=== PATIENT | female | born 1995 | race Caucasian/White ===

== ENCOUNTER 2017-05-07 13:36 | Emergency (ER) | payer OTHER ==
--- NOTE | 2017-05-07 15:50 | EDPHY ---
H & P Stated Complaint: edema in feet/dc'd from benzo/suboxone detox facility to come here Time Seen by Provider: 05/07/17 15:49 HPI/ROS: HPI: This is a 21-year-old female who presents with Chief Complaint: edema in feet/dc'd from benzo/suboxone detox facility to come here Location: Bilateral feet and left heel Quality: Swelling and pain Duration: 1 day Signs and Symptoms: + shortness of breath at rest and on exertion, no chest pain, no nausea, no vomiting, no dizziness, no tremors, no palpitations Timing: Rapid onset Severity: Moderate to severe Context: Patient is currently in a detox program for the last 3-4 days. She is currently on a regimen to wean herself off the Suboxone that include morphine , benzodiazepine. She reports this morning she noticed bilateral feet swelling , pitting in nature. Denies calf pain. She does have some shortness of breath at rest and on exertion. Denies chest pain, cough, fevers. Denies any recent long distance travel. Positive tobacco user. Modifying Factors: None Comment: ROS: see HPI Constitutional: No fever, no chills, no weight loss Eyes: No blurred vision Respiratory: No shortness of breath, no cough Cardiovascular: No chest pain Gastrointestinal: No nausea, no vomiting, no diarrhea Genitourinary: No dysuria Extremities: No myalgias Neurologic: No weakness, no numbness Skin: No rashes Hematologic: No bruising, no bleeding MEDICAL/SURGICAL/SOCIAL HISTORY: Medical history: ruptured l fallopian tube. Does not take any regular medications. Surgical history: Denies Social history: Unemployed. CONSTITUTIONAL: Extremely anxious dramatic young adult white female, awake and alert, no obvious distress HEENT: Atraumatic and normocephalic, PERRL, EOMI. Tympanic membranes clear. Oropharynx clear, no exudate and moist pink mucosa. Airway patent. No lymphadenopathy. No meningismus. Cardiovascular: Normal S1/S2, regular rate, regular rhythm, without murmur rub or gallop. PULMONARY/CHEST: Symmetrical and nontender. Clear to auscultation bilaterally. Good air movement. No accessory muscle usage. ABDOMEN: Soft, nondistended, nontender, no rebound, no guarding, no peritoneal signs, no masses or organomegaly. No CVAT. EXTREMITIES: 2/2 DP and PT pulses, strength 5/5, pitting edema 1+ noted in both feet. Left heel has mild erythema; no induration. No fluctuance. Left Ankle; Plantar flexion to 50, dorsiflexion to 20. Foot inversion to 35 degree. Achilles tendon intact. no deformities, no clubbing, no cyanosis or edema. NEUROLOGICAL: no focal neuro deficits. GCS 15. SKIN: Warm and dry, no erythema. no rash. Good capillary refill. Source: Patient Exam Limitations: No limitations - Personal History LMP (Females 10-55): Over 28 Days Ago Current Tetanus/Diphtheria Vaccine: Yes - Medical/Surgical History Hx Asthma: No Hx Chronic Respiratory Disease: No Hx Diabetes: No Hx Cardiac Disease: No Hx Renal Disease: No Hx Cirrhosis: No Hx Alcoholism: No Hx HIV/AIDS: No Hx Splenectomy or Spleen Trauma: No Other PMH: ruptured l fallopian tube - Social History Smoking Status: Current every day smoker Constitutional: Initial Vital Signs Temperature (C) 36.9 C 05/07/17 14:06 Heart Rate 94 05/07/17 14:06 Respiratory Rate 17 05/07/17 14:06 Blood Pressure 108/59 L 05/07/17 14:06 O2 Sat (%) 95 05/07/17 14:06 O2 Delivery Mode Room Air Allergies/Adverse Reactions: No Known Allergies Allergy (Unverified 05/07/17 14:06) Home Medications: Medication Instructions Recorded Ativan 05/07/17 Cephalexin [Keflex (*)] 500 mg PO TID #21 cap 05/07/17 Codeine Sulf 05/07/17 Medical Decision Making - Diagnostics Imaging Results: Imaging Impressions Extremity Venous Study 05/07/17 16:10 Impression: There is no sonographic evidence of deep or superficial venous thrombosis in either lower extremity. Findings were discussed with Eleanor Joseph PA-C at 17:07, on 05/07/2017. Foot X-Ray 05/07/17 16:11 Impression: Diffuse soft tissue swelling, with no acute osseous abnormality. Foot X-Ray 05/07/17 17:22 Impression: Soft tissue swelling. ED Course/Re-evaluation: Labs, bilateral lower extremity ultrasound, left foot x-ray, IV medications ordered No signs of neurovascular compromise/tenting of skin/compartment syndrome/ extremities and joints examined above and below area of concern and are neurovascularly intact/peripheral vascular disease/ischemia. 1645: Advised by nursing that patient reports that 30 min after IV fentanyl 50 mcg of there is absolutely no pain relief. IV Dilaudid 1 mg given. 1710: Called by Dr. Centeno, radiologist, who advised that bilateral lower extremity ultrasound is negative for deep venous thrombosis. [place] can cause edema. [place] level 0 point Mildly elevated LFTs, low albumin noted. Will start her on Keflex as preventative measures as she had a pedicure over a week ago and there could be early infection in her heel on the left. No overt signs of cellulitis/abscess/soft tissue swelling seen on x-ray. Discussed the mildly elevated proBNP with Dr. Deras. Patient has no signs of hypoxia, respiratory distress, chest pain, pericarditis. Patient is to follow up with her primary care provider in the next 2-3 days. Pain was improved at discharge and deemed adequate for patient. Counselor at bedside and requested Ativan be given as she has not had any since this a.m. She is currently being tapered from 24 mg a day. She is due for 4 mg Ativan p.o. at this time and that dosage was given. X-rays on the feet my read show no fracture, dislocation. This patient was seen under the supervision of my secondary supervising physician. I evaluated care for this patient independently. Patient's presentation, labs/imaging, treatment and plan of care were discussed with secondary supervising physician. Differential Diagnosis: Leg swelling including but not limited to hypoalbuminemia, congestive heart failure, cor pulmonale, chronic venous stasis and DVT. - Data Points Laboratory Results: Laboratory Results 05/07/17 16:05 05/07/17 16:05 05/07/17 05/07/17 05/07/17 16:05 16:05 16:05 WBC 7.78 10^3/uL 10^3/uL (3.80-9.50) RBC 3.83 10^6/uL L 10^6/uL (4.18-5.33) Hgb 11.6 g/dL L g/dL (12.6-16.3) Hct 34.9 % L % (38.0-47.0) MCV 91.1 fL fL (81.5-99.8) MCH 30.3 pg pg (27.9-34.1) MCHC 33.2 g/dL g/dL (32.4-36.7) RDW 12.3 % % (11.5-15.2) Plt Count 209 10^3/uL 10^3/uL (150-400) MPV 9.7 fL fL (8.7-11.7) Neut % (Auto) 68.2 % % (39.3-74.2) Lymph % (Auto) 19.0 % % (15.0-45.0) [place] % (Auto) 7.7 % % (4.5-13.0) Eos % (Auto) 4.0 % % (0.6-7.6) Baso % (Auto) 0.8 % % (0.3-1.7) Nucleat RBC Rel Count 0.0 % % (0.0-0.2) Absolute Neuts (auto) 5.31 10^3/uL 10^3/uL (1.70-6.50) Absolute Lymphs (auto) 1.48 10^3/uL 10^3/uL (1.00-3.00) Absolute Monos (auto) 0.60 10^3/uL 10^3/uL (0.30-0.80) Absolute Eos (auto) 0.31 10^3/uL 10^3/uL (0.03-0.40) Absolute Basos (auto) 0.06 10^3/uL 10^3/uL (0.02-0.10) Absolute Nucleated RBC 0.00 10^3/uL 10^3/uL (0-0.01) Immature Gran % 0.3 % % (0.0-1.1) Immature Gran # 0.02 10^3/uL 10^3/uL (0.00-0.10) Sodium 138 mEq/L mEq/L (134-144) Potassium 4.0 mEq/L mEq/L (3.5-5.2) Chloride 101 mEq/L mEq/L (97-110) Carbon Dioxide 26 mEq/l mEq/l (22-31) Anion Gap 11 mEq/L mEq/L (8-16) BUN 9 mg/dL mg/dL (7-23) Creatinine 0.8 mg/dL mg/dL (0.6-1.0) Estimated GFR > 60 Glucose 82 mg/dL mg/dL (70-100) Calcium 8.5 mg/dL mg/dL (8.5-10.4) Magnesium 1.9 mg/dL mg/dL (1.6-2.3) Total Bilirubin < 0.1 mg/dL L mg/dL (0.1-1.4) Conjugated Bilirubin 0.1 mg/dL mg/dL (0.0-0.5) Unconjugated Bilirubin 0.0 mg/dL mg/dL (0.0-1.1) AST 71 IU/L H IU/L (14-46) ALT 53 IU/L H IU/L (9-52) Alkaline Phosphatase 51 IU/L IU/L (38-126) NT-Pro-B Natriuret Pep 513 pg/mL H pg/mL (0-125) Total Protein 5.6 g/dL L g/dL (6.3-8.2) Albumin 3.1 g/dL L g/dL (3.5-5.0) Lipase 249 IU/L IU/L (23-300) Beta HCG, Qual NEGATIVE Urine Color Urine Appearance Urine pH Ur Specific [place] Urine Protein Urine Ketones Urine Blood Urine Nitrate Urine Bilirubin Urine Urobilinogen Ur Leukocyte Esterase Urine Glucose [place] < 0.2 mEq/L L mEq/L (0.6-1.2) 05/07/17 15:50 WBC RBC Hgb Hct MCV MCH MCHC RDW Plt Count MPV Neut % (Auto) Lymph % (Auto) [place] % (Auto) Eos % (Auto) Baso % (Auto) Nucleat RBC Rel Count Absolute Neuts (auto) Absolute Lymphs (auto) Absolute Monos (auto) Absolute Eos (auto) Absolute Basos (auto) Absolute Nucleated RBC Immature Gran % Immature Gran # Sodium Potassium Chloride Carbon Dioxide Anion Gap BUN Creatinine Estimated GFR Glucose Calcium Magnesium Total Bilirubin Conjugated Bilirubin Unconjugated Bilirubin AST ALT Alkaline Phosphatase NT-Pro-B Natriuret Pep Total Protein Albumin Lipase Beta HCG, Qual Urine Color YELLOW Urine Appearance CLEAR Urine pH 7.0 (5.0-7.5) Ur Specific [place] 1.015 (1.002-1.030) Urine Protein NEGATIVE (NEGATIVE) Urine Ketones NEGATIVE (NEGATIVE) Urine Blood NEGATIVE (NEGATIVE) Urine Nitrate NEGATIVE (NEGATIVE) Urine Bilirubin NEGATIVE (NEGATIVE) Urine Urobilinogen NEGATIVE EU EU (0.2-1.0) Ur Leukocyte Esterase NEGATIVE (NEGATIVE) Urine Glucose NEGATIVE (NEGATIVE) [place] Medications Given: Discontinued Medications Fentanyl (Sublimaze) 50 mcg IVP EDNOW ONE Stop: 05/07/17 16:12 Last Admin: 05/07/17 16:19 Dose: 50 mcg Hydromorphone HCl (Dilaudid) 1 mg IVP EDNOW ONE Stop: 05/07/17 17:26 Last Admin: 05/07/17 17:27 Dose: 1 mg Lorazepam (Ativan) 4 mg PO EDNOW ONE Stop: 05/07/17 17:46 Last Admin: 05/07/17 17:48 Dose: 4 mg Departure - Departure Disposition: Home, Routine, Self-Care Clinical Impression: Bilateral swelling of feet and ankles, Elevated liver function tests, Hypoalbuminemia Medication side effects Qualifiers: Encounter type: initial encounter Qualified Code(s): T88.7XXA - Unspecified adverse effect of drug or medicament, initial encounter Condition: Good Instructions: Leg Edema (ED) Additional Instructions: Today your liver functions were mildly elevated which could be a result of your medications that your taking. [place] and low albumin levels can cause swelling in your lower extremities. Your lithium level today was low at 0.2. Ultrasound did not show any blood clot in your legs. It is recommended that you have repeat lithium and liver function tests in 2-4 weeks. Please elevate your lower extremities and wear compression stockings to to reduce swelling. The x-rays obtained in the emergency department today demonstrate no evidence of an obvious fracture. Sometimes fractures are not obvious on the initial set of x-rays performed in the ED. For this reason, you should have repeat x-rays performed in 7-10 days if you are having any pain exclude the possibility of an occult fracture. Referrals: NONE *PRIMARY CARE P,. [Primary Care Provider] - As per Instructions Raymond Seo MD [Medical Doctor] - 2-3 days without fail Prescriptions: Cephalexin [Keflex (*)] 500 mg PO TID #21 cap
[2017-05-07] MEDS ORDERED: fentaNYL 100 MCG/2 ML INJ IVP ONE (16:11)
[2017-05-07 16:20] LABS: % IMMATURE GRANULYOCYTES 0.3 % (0.0-1.1); ABSOLUTE IMMATURE GRANULOCYTES 0.02 10^3/uL (0.00-0.10); ADD DIFF? NO; ADD MORPH? NO; ADD SCAN? NO; ATYPICAL LYMPHOCYTE FLAG 0 (0-99); FRAGMENT RBC FLAG 0 (0-99); HEMATOCRIT 34.9 % (38.0-47.0); HEMOGLOBIN 11.6 g/dL (12.6-16.3); LEFT SHIFT FLG 0 (0-99); LIPEMIA HEMOLYSIS FLAG 80 (0-99); MEAN CELL HEMOGLOBIN 30.3 pg (27.9-34.1); MEAN CELL HEMOGLOBIN CONCENTR. 33.2 g/dL (32.4-36.7); MEAN CELL VOLUME 91.1 fL (81.5-99.8); MEAN PLATELET VOLUME 9.7 fL (8.7-11.7); PLATELET CLUMPS FLAG 0 (0-99); PLATELET COUNT 209 10^3/uL (150-400); RED BLOOD CELL COUNT 3.83 10^6/uL (4.18-5.33); RED CELL DISTRIBUTION WIDTH 12.3 % (11.5-15.2)
[2017-05-07 16:34] LABS: COLOR YELLOW; LEUKOCYTE ESTERASE,URINE NEGATIVE (NEGATIVE); NITRITE,URINE NEGATIVE (NEGATIVE)
[2017-05-07 16:35] LABS: SODIUM 138 mEq/L (134-144)
[2017-05-07 16:36] LABS: ALANINE AMINOTRANSFERASE 53 IU/L (9-52); ALBUMIN 3.1 g/dL (3.5-5.0); ALKALINE PHOSPHATASE 51 IU/L (38-126); ANION GAP 11 mEq/L (8-16); ASPARTATE AMINOTRANSFERASE 71 IU/L (14-46); CALCIUM 8.5 mg/dL (8.5-10.4); CARBON DIOXIDE 26 mEq/l (22-31); CHLORIDE 101 mEq/L (97-110); CREATININE 0.8 mg/dL (0.6-1.0); GLOMERULAR FILTRATION RATE > 60; GLUCOSE 82 mg/dL (70-100); MAGNESIUM 1.9 mg/dL (1.6-2.3); TOTAL PROTEIN 5.6 g/dL (6.3-8.2)
[2017-05-07 16:42] LABS: BILIRUBIN,TOTAL < 0.1 mg/dL (0.1-1.4); BILIRUBIN-CONJUGATED 0.1 mg/dL (0.0-0.5); LITHIUM < 0.2 mEq/L (0.6-1.2)
[2017-05-07] MEDS ORDERED: HYDROmorphONE/DILAUDID 1 MG/ML INJ IVP ONE (17:25)
[2017-05-07] MEDS ORDERED: LORazepam 1 MG TAB PO ONE (17:45)
[2017-05-07 17:55] VITALS: BP 126/84; PULSE 77; RESP 20; TEMP 98.8; O2SAT 96
== END 2017-05-07 18:24 | disposition home or self-care (01) ==
DX: M25.472 Effusion, left ankle (principal); T40.2X5A Adverse effect of other opioids, initial encounter; T42.4X5A Adverse effect of benzodiazepines, initial encounter; M25.471 Effusion, right ankle; M79.89 Other specified soft tissue disorders; E88.09 Other disorders of plasma-protein metabolism, not elsewhere classified; R94.5 Abnormal results of liver function studies; F17.200 Nicotine dependence, unspecified, uncomplicated
CPT/HCPCS: 96374; J1170; J3010

== ENCOUNTER 2017-05-08 01:55 | Emergency (ER) | payer OTHER ==
[2017-05-08 02:15] VITALS: RESP 16; TEMP 98.1; O2SAT 97
--- NOTE | 2017-05-08 02:36 | EDPHY ---
H & P Stated Complaint: detox - Personal History LMP (Females 10-55): 8-14 Days Ago Current Tetanus/Diphtheria Vaccine: Yes Current Tetanus Diphtheria and Acellular Pertussis (TDAP): Yes - Medical/Surgical History Hx Asthma: No Hx Chronic Respiratory Disease: No Hx Diabetes: No Hx Cardiac Disease: No Hx Renal Disease: No Hx Cirrhosis: No Hx Alcoholism: No Hx HIV/AIDS: No Hx Splenectomy or Spleen Trauma: No Other PMH: ruptured l fallopian tube - Social History Smoking Status: Current every day smoker Time Seen by Provider: 05/08/17 02:02 HPI/ROS: Chief Complaint: Narcotic withdrawal, foot pain HPI: 21-year-old a woman with a history of chronic Suboxone and Klonopin abuse. She is been at [facility] for 4 days. He yesterday was complaining of bilateral foot pain. She had left [facility] and came here for evaluation. Upon discharge discovered that they would not accept her back into the program because she left against medical advise. She then had a friend drive her up to [facility] to try to get into the [address] [place] [address] rehab center. There she was told that she was not eligible because she is currently on codeine and Valium. She then presented to the [facility]. She states she has been having some auditory hallucinations hearing her name. She is having some double vision but is not seeing anything that is not there. She is complaining of diffuse body pain secondary to her withdrawal. No nausea or vomiting. No chest pain or shortness of breath. Complaining of bilateral foot pain. Was started on Keflex in her previous emergency department visit. She was sent down from [facility] by Dr. Ronquillo for further evaluation for her rehabilitation needs. Patient states that at [facility] she was down to codeine 120 mg every 4 hr and Valium 10 mg every 2-4 hours. ROS: 10 point Review of Systems is negative except as noted in the HPI. PMH: Chronic Suboxone and Klonopin abuse, tubo-ovarian abscess Social History: Positive smoking, positive alcohol, chronic Suboxone and Klonopin abuse Family History: non-contributory Physical Exam: Gen: Awake, Alert, No Distress HEENT: Nose: no rhinorrhea Eyes: PERRLA, EOMI Mouth: Moist mucosa Neck: Supple, no JVD Chest: nontender, lungs clear to auscultation Heart: S1, S2 normal, no murmur Abd: Soft, non-tender, no guarding Back: no CVA tenderness, no midline tenderness Ext: Bilateral 1+ pedal edema, mild left plantar erythema without fluctuance. Skin: no rash Neuro: CN II-XII intact, Sensation grossly intact, Strength 5/5 in bilateral upper and lower extremities (Brando Dominguez) Constitutional: Initial Vital Signs Temperature (C) 36.7 C 05/08/17 02:07 Heart Rate 80 05/08/17 02:07 Respiratory Rate 16 05/08/17 02:07 Blood Pressure 107/64 05/08/17 02:07 O2 Sat (%) 97 05/08/17 02:07 O2 Delivery Mode Room Air Allergies/Adverse Reactions: No Known Allergies Allergy (Unverified 05/08/17 02:04) Home Medications: Medication Instructions Recorded Ativan 05/07/17 Cephalexin [Keflex (*)] 500 mg PO TID #21 cap 05/07/17 Codeine Sulf 05/07/17 Medical Decision Making ED Course/Re-evaluation: Nursing staff as discussed with Rocio baker. Patient is not welcome to return there. Apparently there was some sort of confrontation when she left. Patient would like to speak with case management about other options. She is not currently actively hallucinating. Patient signed out to Dr. Cook pending case management consultation. (Carolinvida Brando Kelli) 7:55 a.m. I spoke with the patient who is on the phone with friends and family. She is trying to decide whether or not to stay with her friend here or go back to [place] with her family. She is not allowed back to the detox because she left and they are worried that she used again. While I was in the room she asked me for a re-dose of Suboxone and benzos which is what she has been receiving in the detox facility to detox off of each of those. She states that she has been on benzos all of her life for severe anxiety but she always over uses them and abuses them. I told her I did not feel comfortable writing her a prescription for these. She states that she has a prescription in [place] where her family is. She currently does not display any signs of withdrawal. We will discharge her at this time to return with her family. ( Sung Cook) Differential Diagnosis: Partial list of the Differential diagnosis considered include but were not limited to; substance abuse, withdrawal, anxiety and although unlikely based on the history and physical exam, I also considered infection, head injury. (Sung Cook) - Data Points Medications Given: Discontinued Medications Codeine Sulfate (Codeine) 120 mg PO EDNOW ONE Stop: 05/08/17 02:42 Last Admin: 05/08/17 03:21 Dose: Not Given Codeine Sulfate (Codeine) 60 mg PO EDNOW ONE Stop: 05/08/17 02:58 Last Admin: 05/08/17 03:17 Dose: 60 mg Diazepam (Valium) 10 mg PO EDNOW ONE Stop: 05/08/17 02:38 Last Admin: 05/08/17 03:02 Dose: 10 mg Departure - Departure Disposition: Home, Routine, Self-Care Clinical Impression: Substance abuse Condition: Good Instructions: Polysubstance Abuse (ED), Medical Clearance for Substance Abuse Treatment (ED) Referrals: NONE *PRIMARY CARE P,. [Primary Care Provider] - As per Instructions Jorge Good MD [[facility] Primary Care Provider] - As per Instructions
[2017-05-08] MEDS ORDERED: DIAZEPAM 5 MG TAB PO ONE (02:37)
[2017-05-08] MEDS ORDERED: CODEINE SULF 30 MG TAB PO ONE ×2 (02:41→02:57)
[2017-05-08 07:16] VITALS: BP 119/74; PULSE 83
== END 2017-05-08 08:45 | disposition home or self-care (01) ==
LOC: EDUNIT#
DX: F19.10 Other psychoactive substance abuse, uncomplicated (principal); F17.200 Nicotine dependence, unspecified, uncomplicated